=== PATIENT | male | born 1985 | race Two or more races ===

== ENCOUNTER 2025-02-02 23:48 | Inpatient (IN) | payer OTHER ==
[~2025-02-02] VITALS: Ht 167.6 cm; Wt 98.9 kg
[2025-02-03] MEDS ORDERED: KAPSPARGO SPRIN25 MG PO (00:26)
[2025-02-03] MEDS ORDERED: ATORVASTATIN CA20 MG PO (00:27)
[2025-02-03] MEDS ORDERED: LASIX40 MG PO (00:27)
[2025-02-03] MEDS ORDERED: SPIRONOLACTONE25 MG PO (00:28)
[2025-02-03] MEDS ORDERED: CARVEDILOL12.5 M1 PO (00:28)
--- NOTE | 2025-02-03 00:29 | NUR ---
SE RECIBE PACIENTE ALERTA Y CONCIENTE X3. EL MISMO REFIEREE TENER DOLOR ABDOMINAL, VOMITOS Y FATIGA DESDE HACE DOS SEMANAS. SE PROCEDE A AMBROCIO S/V AL PACIENTE Y SE UBICA EN CAMA 7 CON BARANDAS ELEVADAS Y NIVEL MAS BAJO DE ASHLYN
[2025-02-03] MEDS ORDERED: HYOSCYAMINE SULFATE 0.125 MG TAB.SUBL SL STA (03:33)
[2025-02-03] MEDS ORDERED: FAMOtidine 10 MG/ML (4ML VIAL) IV PUSH STA (03:33)
[2025-02-03] MEDS ORDERED: HYOSCYAMINE SULFATE 0.125 MG TAB.SUBL ONE (04:07)
[2025-02-03] MEDS ORDERED: FAMOTIDINE/PF 20 MG/2 ML VIAL ONE (04:07)
[2025-02-03 04:30] LABS: MEAN CORPUSCULAR HEMOGLOBIN 25.8 pg (25.6-32.2); NEUT % 61.8 % (34.0-71.1)
[2025-02-03 04:36] LABS: BASO % 0.3 % (0.1-1.2); EOS # 0.06 (0.04-0.54); EOS % 0.4 % (0.7-7.0); HEMATOCRIT 40.3 % (40.1-51.0); LYMPH # 3.39 (1.18-3.74); LYMPH % 24.3 % (19.3-53.1); MONO # 1.78 (0.24-0.82); RED BLOOD COUNT 5.43 M/uL (4.63-6.08); RED CELL DISTRIBUTION WIDTH 17.3 % (11.6-14.4)
[2025-02-03 04:39] LABS: MONO % 12.8 % (4.7-12.5); PLATELET COUNT 328 K/uL (163-369)
[2025-02-03 04:40] LABS: ALBUMIN 3.4 gm/dL (3.4-5.0); BILIRUBIN TOTAL 4.58 mg/dL (0.3-1.2); BILIRUBIN,CONJUGATED 0.68 mg/dL (0.0-0.2); BILIRUBIN,UNCONJUGATED 3.9 mg/dL (0.0-0.6); CALCIUM 8.9 mg/dL (8.5-10.1); CREATININE SERUM 1.11 mg/dL (0.70-1.30); GFR 73.75; GLOBULINA 3.5 G/DL (2.4-3.5); POTASSIUM 4.28 mEq/L (3.5-5.1); TOTAL PROTEIN 6.9 gm/dL (6.4-8.2)
[2025-02-03 04:41] LABS: INR 1.48
[2025-02-03 04:48] LABS: PROTHROMBIN TIME 15.7 SECONDS (9.0-11.5)
--- NOTE | 2025-02-03 05:04 | NUR ---
SE ORIENTA PTE SOBRE [place] MEDICO Y PTE REFIERE ENTENDER. SE AYDE MUESTRAS Y SE ADMINISTRAN [facility] K[facility]STIE ORDEN MEDICA BAJO MEDIDAS ASEPTICAS.
--- NOTE | 2025-02-03 12:00 | NUR ---
PTE ALERTA Y ORIENTADO X3. EN ASHLYN BAJA CON BARANDAS ELEVADA SOR SEGURIDAD. HL PATENTE. EN ESPERA DE CONSULTA
[2025-02-03] MEDS ORDERED: PANTOPRAZOLE SODIUM 40 MG in 0.9 % SODIUM CHLORIDE 8 ML IV PUSH SCH (19:23)
[2025-02-03] MEDS ORDERED: ONDANSETRON HCL 4 MG in 0.9 % SODIUM CHLORIDE 50 ML IV PRN (19:30)
[2025-02-03] MEDS ORDERED: 0.9 % SODIUM CHLORIDE 1,000 ML IV SCH (19:30)
[2025-02-04 00:59] VITALS: BP 138/100
[2025-02-04 01:17] LABS: INR 1.4; PARTIAL THROMBOPLASTIN TIME 25.6 SECONDS (22.0-34.0); PROTHROMBIN TIME 14.9 SECONDS (9.0-11.5)
[2025-02-04 01:23] LABS: CALCIUM 8.7 mg/dL (8.5-10.1); CREATININE SERUM 1.09 mg/dL (0.70-1.30); GFR 75.31; POTASSIUM 4.56 mEq/L (3.5-5.1)
[2025-02-04 01:25] LABS: ALBUMIN 3.2 gm/dL (3.4-5.0)
[2025-02-04 02:12] VITALS: BP 120/79; O2SAT 95
[2025-02-04 09:14] VITALS: BP 144/87
[2025-02-04 15:00] VITALS: BP 130/90; O2SAT 96
[2025-02-05 01:37] VITALS: BP 133/95; O2SAT 99
[2025-02-05 08:49] VITALS: BP 133/95; O2SAT 97
[2025-02-05] MEDS ORDERED: ENOXAPARIN SODIUM 40 MG/0.4 ML SYRINGE SUBCUTANEO SCH (09:00)
[2025-02-05 15:34] LABS: BASO % 0.3 % (0.1-1.2); EOS # 0.11 (0.04-0.54); HEMATOCRIT 38.4 % (40.1-51.0); HEMOGLOBIN 13.4 g/dL (13.7-17.5); LYMPH # 4.11 (1.18-3.74); LYMPH % 35.8 % (19.3-53.1); MEAN CORPUSCULAR HEMOGLOBIN 25.9 pg (25.6-32.2); MONO # 1.33 (0.24-0.82); MONO % 11.6 % (4.7-12.5); NEUT # 5.84 (1.56-6.13); PLATELET COUNT 311 K/uL (163-369); RED BLOOD COUNT 5.18 M/uL (4.63-6.08); RED CELL DISTRIBUTION WIDTH 17.4 % (11.6-14.4)
[2025-02-05 16:10] LABS: ALBUMIN 2.8 gm/dL (3.4-5.0); BILIRUBIN TOTAL 3.73 mg/dL (0.3-1.2); CALCIUM 8.3 mg/dL (8.5-10.1); CREATININE SERUM 1.16 mg/dL (0.70-1.30); GFR 70.09; GLOBULINA 3.5 G/DL (2.4-3.5); POTASSIUM 4.59 mEq/L (3.5-5.1); TOTAL PROTEIN 6.3 gm/dL (6.4-8.2)
[2025-02-05 16:42] VITALS: BP 140/66
[2025-02-06 01:16] VITALS: BP 136/87
[2025-02-06 07:00] VITALS: BP 120/93; O2SAT 96
[2025-02-06] MEDS ORDERED: METOPROLOL SUCCINATE 25 MG TAB.SR.24H PO SCH (09:00)
[2025-02-06] MEDS ORDERED: ATORVASTATIN CALCIUM 40 MG TABLET PO NR (10:20)
[2025-02-06] MEDS ORDERED: FUROsemide 20 MG/2 ML VIAL IV NR (10:20)
[2025-02-06] MEDS ORDERED: CLOPIDOGREL BISULFATE 75 MG TABLET PO NR (10:20)
[2025-02-06] MEDS ORDERED: ASPIRIN 81 MG TAB.CHEW PO NR (10:20)
[2025-02-06 16:13] VITALS: BP 120/91; O2SAT 98
[2025-02-06] MEDS ORDERED: ENOXAPARIN SODIUM 100 MG/ML SYRINGE SUBCUTANEO SCH (21:00)
[2025-02-07 01:57] VITALS: BP 121/90; O2SAT 98
[2025-02-07 05:07] LABS: hav igm Negative (Negative); hcv Non Reactive (Non Reactive); hep b c Negative (Negative); hep b s ag Negative (Negative)
[2025-02-07 08:58] VITALS: BP 137/90; O2SAT 98
[2025-02-07] MEDS ORDERED: ASPIRIN 81 MG TAB.CHEW PO SCH (09:00)
[2025-02-07] MEDS ORDERED: PANTOPRAZOLE SODIUM 40 MG TABLET.DR PO SCH (09:00)
[2025-02-07] MEDS ORDERED: FUROsemide 20 MG/2 ML VIAL IV SCH (09:00)
[2025-02-07] MEDS ORDERED: ATORVASTATIN CALCIUM 40 MG TABLET PO SCH (09:00)
[2025-02-07] MEDS ORDERED: CLOPIDOGREL BISULFATE 75 MG TABLET PO SCH (09:00)
[2025-02-07] MEDS ORDERED: LOSARTAN POTASSIUM 25 MG TABLET PO SCH (09:00)
[2025-02-07] MEDS ORDERED: EMPAGLIFLOZIN 10 MG TABLET PO SCH (10:00)
[2025-02-07 17:57] VITALS: BP 150/80
[2025-02-07] MEDS ORDERED: ONDANSETRON HCL 2 MG/ML VIAL ONE (21:19)
[2025-02-08 02:34] VITALS: BP 120/89; O2SAT 98
[2025-02-08 06:59] LABS: ALBUMIN 2.7 gm/dL (3.4-5.0); BILIRUBIN TOTAL 2.12 mg/dL (0.3-1.2); CALCIUM 8.3 mg/dL (8.5-10.1); CREATININE SERUM 1.4 mg/dL (0.70-1.30); GFR 56.42; GLOBULINA 3.5 G/DL (2.4-3.5); POTASSIUM 4.37 mEq/L (3.5-5.1); TOTAL PROTEIN 6.2 gm/dL (6.4-8.2)
[2025-02-08 09:16] VITALS: BP 136/100; O2SAT 97
[2025-02-08 16:58] VITALS: BP 150/85
[2025-02-09 01:13] VITALS: BP 123/88; O2SAT 97
[2025-02-09 09:15] VITALS: BP 119/81; O2SAT 96
[2025-02-09 17:38] VITALS: BP 116/85
[2025-02-10 02:20] VITALS: BP 129/90; O2SAT 98
[2025-02-10 07:34] LABS: BASO % 0.5 % (0.1-1.2); EOS # 0.12 (0.04-0.54); EOS % 1.4 % (0.7-7.0); HEMATOCRIT 40.9 % (40.1-51.0); HEMOGLOBIN 13.9 g/dL (13.7-17.5); LYMPH # 3.23 (1.18-3.74); MEAN CORPUSCULAR HEMOGLOBIN 25.2 pg (25.6-32.2); MONO # 1.01 (0.24-0.82); MONO % 11.9 % (4.7-12.5); NEUT # 4.08 (1.56-6.13); NEUT % 47.8 % (34.0-71.1); PLATELET COUNT 403 K/uL (163-369); RED BLOOD COUNT 5.52 M/uL (4.63-6.08); RED CELL DISTRIBUTION WIDTH 16.8 % (11.6-14.4)
[2025-02-10 07:55] VITALS: BP 118/80; O2SAT 96
[2025-02-10 08:00] LABS: ALBUMIN 2.6 gm/dL (3.4-5.0); BILIRUBIN TOTAL 1.38 mg/dL (0.3-1.2); CALCIUM 8.6 mg/dL (8.5-10.1); CREATININE SERUM 1.27 mg/dL (0.70-1.30); GFR 63.13; GLOBULINA 3.4 G/DL (2.4-3.5); POTASSIUM 4.99 mEq/L (3.5-5.1)
[2025-02-10 16:00] VITALS: BP 133/89; O2SAT 95
[2025-02-11 02:05] VITALS: BP 114/83; O2SAT 100
[2025-02-11] MEDS ORDERED: METOPROLOL SUCCINATE 25 MG TAB.SR.24H PO SCH (09:00)
[2025-02-11] MEDS ORDERED: SPIRONOLACTONE 25 MG TABLET PO SCH (09:00)
[2025-02-11 09:30] VITALS: BP 140/80; O2SAT 96
[2025-02-11 16:00] VITALS: BP 107/79; O2SAT 97
[2025-02-12 02:00] VITALS: BP 117/92; O2SAT 97
[2025-02-12 08:33] VITALS: BP 130/85; O2SAT 98
[2025-02-12 16:32] VITALS: BP 115/84
[2025-02-13 01:29] VITALS: BP 140/100; O2SAT 100
[2025-02-13 08:58] VITALS: BP 154/90; O2SAT 99
[2025-02-13] MEDS ORDERED: ONDANSETRON HCL 2 MG/ML VIAL IV PRN (16:30)
[2025-02-13 16:51] VITALS: BP 116/84; O2SAT 98
[2025-02-13] MEDS ORDERED: PANTOPRAZOLE SODIUM 40 MG TABLET.DR PO SCH (17:00)
[2025-02-14 02:03] VITALS: BP 123/91; O2SAT 94
[2025-02-14 09:14] VITALS: BP 126/93; O2SAT 100
== END 2025-02-14 12:46 | disposition home or self-care (01) | DRG 282 ==
LOC: ER 23:48 → MEDI 02-03 19:56
PROVIDERS: General Practice; Student in an Organized Health Care Education/Training Program; ADMIT Internal Medicine; ATTEND Internal Medicine
PROC: BW21YZZ Computerized Tomography (CT Scan) of Abdomen and Pelvis using Other Contrast (ICD-10-PCS; 2025-02-03)
PROC: BT43ZZZ Ultrasonography of Bilateral Kidneys (ICD-10-PCS; principal; 2025-02-04)
PROC: B246ZZZ Ultrasonography of Right and Left Heart (ICD-10-PCS; 2025-02-04)
PROC: 4A12X4Z Monitoring of Cardiac Electrical Activity, External Approach (ICD-10-PCS; 2025-02-07)
PROC: 4A12X4Z Monitoring of Cardiac Electrical Activity, External Approach (ICD-10-PCS; 2025-02-07)
DX: I50.23 Acute on chronic systolic (congestive) heart failure (principal); I21.9 Acute myocardial infarction, unspecified; K70.9 Alcoholic liver disease, unspecified; R74.01 Elevation of levels of liver transaminase levels; F10.21 Alcohol dependence, in remission; K76.0 Fatty (change of) liver, not elsewhere classified; I11.0 Hypertensive heart disease with heart failure; I27.20 Pulmonary hypertension, unspecified; K29.70 Gastritis, unspecified, without bleeding; E86.0 Dehydration; R16.0 Hepatomegaly, not elsewhere classified